=== PATIENT | male | born 2000 | race Caucasian/White ===

== ENCOUNTER 2024-01-07 10:36 | Emergency (ER) | payer BC ==
[~2024-01-07] VITALS: Ht 172.7 cm; Wt 59.3 kg
[2024-01-07 10:38] VITALS: BP 148/97; PULSE 68; RESP 16; TEMP 97.4; O2SAT 99
[2024-01-07] MEDS ORDERED: AMOX875T2 PO (12:05)
== END 2024-01-07 12:32 | disposition home or self-care (01) ==
LOC: ER 10:36
DX: K04.7 Periapical abscess without sinus (principal)
CPT/HCPCS: 99282

== ENCOUNTER 2024-01-24 13:52 | Emergency (ER) | payer BC ==
[~2024-01-24] VITALS: Ht 172.7 cm; Wt 61.6 kg
[2024-01-24 14:03] VITALS: BP 130/60; PULSE 76; RESP 18; TEMP 99.1; O2SAT 99
[2024-01-24] MEDS ORDERED: CLIN-214 PO (14:17)
[2024-01-24] MEDS ORDERED: CHLO473M2 PO (14:17)
== END 2024-01-24 14:22 | disposition home or self-care (01) ==
LOC: ER 13:52
DX: K02.9 Dental caries, unspecified (principal); Z79.2 Long term (current) use of antibiotics; Z79.899 Other long term (current) drug therapy
CPT/HCPCS: 99283

== ENCOUNTER 2024-06-16 21:21 | Emergency (ER) | payer BC ==
[~2024-06-16] VITALS: Ht 172.7 cm; Wt 63.6 kg
[~2024-06-16 21:21] MED LIST: CHLO473M2 PO; CLIN-214 PO
[2024-06-16 21:40] VITALS: BP 162/86; PULSE 75; RESP 16; TEMP 98.4; O2SAT 99
== END 2024-06-16 22:44 ==
LOC: ER 21:21
DX: S00.01XA Abrasion of scalp, initial encounter (principal); V89.2XXA Person injured in unspecified motor-vehicle accident, traffic, initial encounter; Y93.89 Activity, other specified; Y92.89 Other specified places as the place of occurrence of the external cause; Y99.8 Other external cause status
CPT/HCPCS: 99283